=== PATIENT | female | born 1985 | race Caucasian/White ===

== ENCOUNTER 2018-12-01 20:25 | Emergency (ER) | payer OTHER ==
[~2018-12-01] VITALS: Ht 167.6 cm; Wt 59.0 kg
[~2018-12-01 20:25] MED LIST: AZIT250 PO; AZIT500 PO; BENADRYL; CEPH500 PO; CRUTCH4 USE; Cleocin HCl300 MG PO; DOXY100 PO; HYDACE5 PO; IBUP600 PO; IBUP800; IBUP800 PO; MEDR150I; METO10 PO; ONDA4 PO; OXYACE5T PO; PRED10 PO; PROM25 PO; RXOXYACE PO; RXPROM25 PO; SULTRIDS PO
== END 2018-12-01 21:22 | disposition left against medical advice (07) ==
LOC: ER 20:25
DX: L03.211 Cellulitis of face (principal); Z88.0 Allergy status to penicillin; F17.200 Nicotine dependence, unspecified, uncomplicated
CPT/HCPCS: 99281; J3370

== ENCOUNTER → 2019-01-16 | Outpatient (CLI) | payer OTHER ==
[2019-01-19 07:06] LABS: CHLAMYDIA TRACHOMATIS, NAA Negative (Negative); NEISSERIA GONORRHOEAE, NAA Negative (Negative)
== END | disposition home or self-care (01) ==
LOC: LAB SHORT 19:22 → LAB EV 19:22
PROVIDERS: Physician Assistant
DX: Z20.2 Contact with and (suspected) exposure to infections with a predominantly sexual mode of transmission (principal); N39.0 Urinary tract infection, site not specified
CPT/HCPCS: 87077; 87086; 87186

== ENCOUNTER 2019-02-02 00:36 | Emergency (ER) | payer OTHER ==
[~2019-02-02] VITALS: Ht 167.6 cm; Wt 63.5 kg
== END 2019-02-02 02:06 | disposition left against medical advice (07) ==
LOC: ER 00:36
DX: T18.9XXA Foreign body of alimentary tract, part unspecified, initial encounter (principal); F17.200 Nicotine dependence, unspecified, uncomplicated; Z88.0 Allergy status to penicillin; Z79.899 Other long term (current) drug therapy
CPT/HCPCS: 99283

== ENCOUNTER 2019-09-23 00:35 | Emergency (ER) | payer OTHER ==
[~2019-09-23] VITALS: Ht 167.6 cm; Wt 63.5 kg
== END 2019-09-23 03:10 | disposition home or self-care (01) ==
LOC: ER 00:35
DX: S82.831A Other fracture of upper and lower end of right fibula, initial encounter for closed fracture (principal); X58.XXXA Exposure to other specified factors, initial encounter; Z88.0 Allergy status to penicillin; F17.210 Nicotine dependence, cigarettes, uncomplicated
CPT/HCPCS: 29515; 73590; 73610; 99283-25

== ENCOUNTER 2019-10-02 20:48 | Emergency (ER) | payer OTHER ==
[~2019-10-02] VITALS: Ht 167.6 cm; Wt 63.5 kg
[2019-10-02] MEDS ORDERED: Bactrim Ds Tab1 EACH PO (22:06)
[2019-10-02] MEDS ORDERED: CEPH500 PO (22:06)
== END 2019-10-02 22:29 | disposition home or self-care (01) ==
LOC: ER 20:48
DX: L03.211 Cellulitis of face (principal); F17.200 Nicotine dependence, unspecified, uncomplicated; Z88.0 Allergy status to penicillin
CPT/HCPCS: 99283; A9270-GY

== ENCOUNTER 2024-03-02 17:57 | Emergency (ER) | payer OTHER ==
[~2024-03-02] VITALS: Ht 172.7 cm; Wt 70.3 kg
[~2024-03-02 17:57] MED LIST changes: +Bactrim Ds Tab1 EACH PO; +Floxin10 ML RIGHTEYE
[2024-03-02] MEDS ORDERED: FentaNYL Citrate 50 MCG/ML 2 ML Injection IV ONE (18:20)
[2024-03-02 18:38] VITALS: BP 120/77
[2024-03-02] MEDS ORDERED: Diphth,Pertuss(Acell),Tet Vac 0.5 ML VIAL IM ONE (21:10)
[2024-03-02] MEDS ORDERED: RX Prepack 6 Tabs Oxycodone 5mg UD ONE (21:10)
== END 2024-03-02 21:52 | disposition home or self-care (01) ==
LOC: ER 17:57
DX: S51.822A Laceration with foreign body of left forearm, initial encounter (principal); S01.01XA Laceration without foreign body of scalp, initial encounter; S41.111A Laceration without foreign body of right upper arm, initial encounter; S51.811A Laceration without foreign body of right forearm, initial encounter; W25.XXXA Contact with sharp glass, initial encounter; Z88.0 Allergy status to penicillin; F17.210 Nicotine dependence, cigarettes, uncomplicated
CPT/HCPCS: 12035; 90471; 90715; 96374-59; 99283-25; A9270; J3010